=== PATIENT | female | born 1945 | race Caucasian/White ===

== ENCOUNTER 2017-03-29 10:01 | Emergency (ER) | payer OTHER ==
[~2017-03-29] VITALS: Ht 165.1 cm; Wt 102.7 kg
[~2017-03-29 10:01] MED LIST: ESCITALOPRAM OX20 MG PO; MOTRIN600 MG PO; MYRBETRIQ50 MG PO; PRAVASTATIN SOD80 MG PO; ULTRAM50 MG PO; ZOLPIDEM TARTRA10 MG PO
[2017-03-29 10:16] LABS: HEMATOCRIT 39.4 % (36.0-46.0); MCH 28.5 PG (29.0-34.0); MCV 83.7 FL (83-99); MEAN PLAT.VOLUME 10.1 uM^3 (9.5-12.4); PLATELET COUNT 309 K/uL (156-360); RBC DIS.WIDTH-CV 13.4 % (11.8-14.6); RBC DIS.WIDTH-SD 41.5 % (39-53); RED BLOOD COUNT 4.71 M/uL (3.80-5.20); WHITE BLOOD COUNT 7.4 K/uL (4.1-10.2)
[2017-03-29 10:24] LABS: CHLORIDE 99 mEq/L (99-109); POTASSIUM 3.6 mEq/L (3.7-5.4); SODIUM 136 mEq/L (136-147)
[2017-03-29 10:26] LABS: GLUCOSE 128 mg/dL (70-99)
[2017-03-29 10:27] LABS: ANION GAP 11 MEQ/L (2-14)
[2017-03-29 10:28] LABS: TOTAL BILIRUBIN 0.4 mg/dL (0.0-1.0)
[2017-03-29 10:29] LABS: ALKALINE PHOSPHATASE 61 IU/L (3-129)
[2017-03-29 10:30] LABS: GFR ESTIMATE (CALCULATED) > 59 mL/min/
[2017-03-29 10:31] LABS: UREA NITROGEN (BUN) 13 mg/dL (9-23)
[2017-03-29 11:01] LABS: ADD MIUA? YES; BILIRUBIN NEGATIVE; BLOOD SMALL; COLOR YELLOW ((YELLOW)); GLUCOSE (STRIP) NEGATIVE; KETONES NEGATIVE; LEUKOCYTES NEGATIVE; NITRITE NEGATIVE; PROTEIN (STRIP) NEGATIVE; SPECIFIC GRAVITY 1.013 (1.000-1.030); UROBILINOGEN 0.2 MG/DL (0.2-1.0)
[2017-03-29 11:03] LABS: BACTERIA NONE SEEN /HPF; EPITHELIAL CELLS RARE /HPF; MUCUS TRACE /LPF; RED BLOOD CELLS 0-5 /HPF (0-5); UCUL ADDED? NO; WHITE BLOOD CELLS 0-5 /HPF (0-5)
[2017-03-29 12:55] LABS: TROP-I INTERPRETATION NEGATIVE; TROPONIN-I < 0.01 ng/mL (0.0-0.30)
[2017-03-29 13:23] VITALS: BP 151/73
== END 2017-03-29 13:43 | disposition home or self-care (01) ==
LOC: EME 10:01
PROVIDERS: Emergency Medicine
DX: R10.11 Right upper quadrant pain (principal); R19.01 Right upper quadrant abdominal swelling, mass and lump; R19.7 Diarrhea, unspecified; E78.5 Hyperlipidemia, unspecified
CPT/HCPCS: 74177; 80053; 81003; 84484; 85027; 93005; 99281; 99285; J2270

== ENCOUNTER 2017-07-07 09:57 | Day surgery (SDC) | payer OTHER ==
[~2017-07-07] VITALS: Ht 165.1 cm; Wt 100.7 kg
[~2017-07-07 09:57] MED LIST changes: +ACCURETIC 201 TABLET PO; +AMLODIPINE BESYL5 MG PO; +BUPROPION HCL150 M2 PO; +CELEXA40 MG PO; +CLONAZEPAM1 MG PO; +METFORMIN HCL750 MG PO; +OMEPRAZOLE40 M1 PO; +PERCOCET 5/31 TABLET PO; +TOPAMAX100 MG PO; +TRIGLIDE160 MG PO
[2017-07-07 10:25] LABS: POINT-OF-CARE METER ID UU14174212
[2017-07-07 11:02] VITALS: BP 143/73
[2017-07-07 13:31] LABS: POINT-OF-CARE METER ID UU13113675; POINT-OF-CARE USER ID 515036437
[2017-07-07 14:15] VITALS: BP 134/64
[2017-07-07 15:15] VITALS: BP 157/68
== END 2017-07-07 15:15 | disposition home or self-care (01) ==
LOC: SDC 09:57
PROVIDERS: Surgery
PROC: 0HBU0ZZ Excision of Left Breast, Open Approach (ICD-10-PCS; principal; 2017-07-07)
DX: C50.312 Malignant neoplasm of lower-inner quadrant of left female breast (principal); Z17.1 Estrogen receptor negative status [ER-]; Z86.010 Personal history of colon polyps; Z90.710 Acquired absence of both cervix and uterus; E11.9 Type 2 diabetes mellitus without complications; Z79.84 Long term (current) use of oral hypoglycemic drugs
CPT/HCPCS: 82948; 88307; J0131; J0690; J2250; J2405; J3010; S0020

== ENCOUNTER → 2017-10-30 | Outpatient (CLI) | payer OTHER | END | disposition home or self-care (01) | LOC: EKG 12:59 | DX: I05.1 Rheumatic mitral insufficiency (principal); I07.1 Rheumatic tricuspid insufficiency; C50.919 Malignant neoplasm of unspecified site of unspecified female breast | CPT/HCPCS: 93308 ==

== ENCOUNTER → 2017-12-26 | Outpatient (CLI) | payer OTHER | END | disposition home or self-care (01) | LOC: AMB 12-19 12:30 | PROC: 02PYX3Z Removal of Infusion Device from Great Vessel, External Approach (ICD-10-PCS; principal; 2017-12-26) | PROC: 0JPT3WZ Removal of Totally Implantable Vascular Access Device from Trunk Subcutaneous Tissue and Fascia, Percutaneous Approach (ICD-10-PCS; principal; 2017-12-26) | DX: Z45.2 Encounter for adjustment and management of vascular access device (principal); I87.8 Other specified disorders of veins ==

== ENCOUNTER → 2018-04-10 | Outpatient (CLI) | payer OTHER | END | disposition home or self-care (01) | LOC: CDC 10:32 | DX: Z01.810 Encounter for preprocedural cardiovascular examination (principal); M25.532 Pain in left wrist; R94.31 Abnormal electrocardiogram [ECG] [EKG] | CPT/HCPCS: 93000 ==